=== PATIENT | female | born 1975 | race Caucasian/White ===

== ENCOUNTER → 2019-03-26 08:19 | Outpatient (BNVA) | payer OTHER, SELFPAY | PROVIDERS: Family Provider Family Medicine; PCP Family Medicine; Visit Provider Obstetrics & Gynecology Female Pelvic Medicine and Reconstructive Surgery | DX: Z12.4 Encounter for screening for malignant neoplasm of cervix (principal); Z12.39 Encounter for other screening for malignant neoplasm of breast; N92.0 Excessive and frequent menstruation with regular cycle; N94.6 Dysmenorrhea, unspecified; E66.01 Morbid (severe) obesity due to excess calories; Z80.0 Family history of malignant neoplasm of digestive organs | CPT/HCPCS: 88175 ==

== ENCOUNTER → 2019-03-28 14:02 | Outpatient (BNVA) | payer OTHER, SELFPAY | PROVIDERS: Family Provider Family Medicine; PCP Family Medicine; Referring Provider Obstetrics & Gynecology Female Pelvic Medicine and Reconstructive Surgery; Visit Provider Obstetrics & Gynecology Female Pelvic Medicine and Reconstructive Surgery | DX: N92.0 Excessive and frequent menstruation with regular cycle (principal); E66.01 Morbid (severe) obesity due to excess calories; N94.6 Dysmenorrhea, unspecified; N85.4 Malposition of uterus; N83.292 Other ovarian cyst, left side | CPT/HCPCS: 76830; 76856 ==

== ENCOUNTER → 2019-04-14 13:01 | Outpatient (BNVA) | payer OTHER, SELFPAY | PROVIDERS: Family Provider Family Medicine; PCP Family Medicine; Visit Provider Obstetrics & Gynecology Female Pelvic Medicine and Reconstructive Surgery | DX: N92.0 Excessive and frequent menstruation with regular cycle (principal) | CPT/HCPCS: 81025 ==

== ENCOUNTER → 2019-04-15 09:57 | Outpatient (BNVA) | payer OTHER, SELFPAY | PROVIDERS: Family Provider Family Medicine; PCP Family Medicine; Visit Provider Obstetrics & Gynecology Female Pelvic Medicine and Reconstructive Surgery | DX: N92.0 Excessive and frequent menstruation with regular cycle (principal) | CPT/HCPCS: 88305 ==

== ENCOUNTER 2019-07-09 10:01 | Day surgery (SDC) | payer OTHER, SELFPAY ==
[2019-07-08 12:00] VITALS: BMI 41.9
[2019-07-09] VITALS (7 sets, daily range): BP systolic 105–168; BP diastolic 69–111; PULSE 72–103; RESP 16–18; TEMP 36.4–36.6; O2SAT 96–98
[2019-07-09] MEDS: sodium chloride 0.9% 1,000 ML 30 ML IV (10:46)
[2019-07-09 10:53] LABS: Add Urine Microscopic? NO
--- NOTE | 2019-07-09 10:58 | ANES.PREANE2 ---
Pre-Anesthetic Assessment Pre-Anesthetic Assessment: Height/Weight: Height 1.68 m Weight 117.934 kg Temp Pulse Resp BP Pulse Ox 97.9 F 78 18 168/111 98 07/09/19 10:38 07/09/19 10:38 07/09/19 10:38 07/09/19 10:38 07/09/19 10:38 Preop Diagnosis: Abnormal uterine bleeding Proposed Procedure: Operation Date: 07/09/19 11:45 Proposed Procedures p Hysteroscopy with polypectomy Endometrial ablation with Novasure [id number]/N92.0/N94.6/N84.0(Not Applicable) - Pancho Jaramillo MD Last intake: Intake Last Liquid Date 07/08/19 Last Liquid Time 23:30 Last Solid Date 07/08/19 Last Solid Time 20:00 Social: Social History: Alcohol () and Tobacco (quit 2007) Exam: Pre-Anes Outpt Exam: alert, oriented x 3, clear to auscultation bilaterally and regular rate & rhythm Airway: Submandibular: WNL Cervical ROM: WNL MP: 2 Dentition: Other (teeth ok, caps) History/ROS: No significant history except as noted Pulmonary: Pulmonary: None reported CV/HEM: CV/HEM: HTN : : None reported Hepatic: Hepatic: None reported GI: GI: GERD (controlled) Metabolic: Metabolic: Morbid obesity Musc/skel: Musc/skel: None reported Neuropsych: Neuropsych: Anxiety and Depression Anesthetic Plan: ASA status: 3 Anesthesia: Anesthesia Evaluation and General Risk of > 500 ml blood loss (7ml/kg in children): No Meds/Allergies Current Medications: Current Medications Generic Name Dose Route Start Last Admin Trade Name Freq PRN Reason Stop Dose Admin Sodium Chloride 1,000 mls @ 30 ml s/hr 07/09/19 10:30 07/09/19 10:46 Sodium Chloride 0.9% IV 07/10/19 10:29 30 mls/hr .Q24H PHILIPPE Administration PFSH Anesthesia PFSH: Medical History Anxiety and depression Family history of colon cancer mother/grandfather GERD (gastroesophageal reflux disease) Hypertension Surgical History History of adenoidectomy History of delivery (~2006) Family History Mother Hypertension Colon cancer Diagnosed in her early 40s Lung cancer Grandfather Stroke maternal Colon cancer maternal; age of diagnosis unknown Father Thyroid condition Denies family history of Ovarian cancer Diabetes Heart disease Hyperlipidemia Breast cancer Uterine cancer Social History (Updated 07/08/19 @ 10:10 by Cathy Hsieh RN) Smoking and tobacco status: former smoker Quit status (tobacco): has quit using tobacco Year quit tobacco: 11/2006 Former quit date comment: Started smoking at 13 years old and smoked approximately 1 pack daily Alcohol intake: current Alcohol intake frequency: holidays/special occasions only Alcohol type: beer, wine and hard liquor Desire information about substance/drug rehabilitation?: No (History of marijuana use in her 20s) 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
[2019-07-09 11:02] LABS: Bilirubin Urine Neg (NEGATIVE); Blood Urine Neg (Negative); Glucose Urine UA Norm (Normal); Ketones Urine Negative (Negative); Leukocyte Esterase Urine Negative (Negative); Nitrate Urine Negative (Negative); Protein Urine Neg (Negative); Specific Gravity, Urine 1.015 (1.005-1.030); Urine Appearance Clear (CLEAR); Urine Color Yellow (Yellow); Urobilinogen Urine Norm (Negative); pH Urine 5 (5-7)
[2019-07-09 11:07] LABS: Basophils # 0.1 10^3/uL (0.0-0.1); Basophils % 1.2 %; Eosinophils # 0.2 10^3/uL (0.0-0.8); Eosinophils % 2.5 %; Hemoglobin 14.1 g/dL (11.5-15.3); Lymphocytes # 2.7 10^3/uL (0.8-4.8); Lymphocytes % 40.9 %; Mean Corpuscular Hemoglobin 29.1 pg (28.0-34.0); Mean Corpuscular Volume 90.9 fL (81-99); Mean Platelet Volume 9.6 fL (7.4-10.4); Monocytes # 0.6 10^3/uL (0.2-0.9); Monocytes % 8.8 %; Neutrophils % 46.4 %; Nucleated Red Blood Cells % 0 %; Platelet Count 293 10^3/cmm (130-400); Red Blood Count 4.84 10^6/uL (4.1-5.3); Red Cell Distribution Width 14.3 % (12.1-15.1); White Blood Count 6.5 10^3/uL (4.0-10.0)
[2019-07-09 11:24] LABS: Anion Gap 16.7 (5-19); Blood Urea Nitrogen 14 mg/dL (6-20); Carbon Dioxide 25 mmol/L (22-29); Chloride 99 mmol/L (98-107); Glomerular Filtration Rate 77.9 mL/min (90-130); Glucose 123 mg/dL (65-115); Osmolality Calculated 280 mOsm/kg (285-295); Potassium 4.7 mmol/L (3.5-5.1); Sodium 136 mmol/L (136-145)
--- NOTE | 2019-07-09 11:25 | W.PM.OPSUD ---
Surgery/Procedure H&P Update DATE OF PROCEDURE: July 09, 2019 DATE H&P PERFORMED: 07/08/19 H&P UPDATE INFORMATION: I have reviewed H&P completed within last 30 days, I have examined patient prior to procedure and No changes to prior documentation PREOP DIAGNOSIS: Abnormal uterine bleeding PLANNED PROCEDURE: Operation Date: 07/09/19 11:45 Proposed Procedures p Hysteroscopy with polypectomy Endometrial ablation with Novasure [id number]/N92.0/N94.6/N84.0(Not Applicable) - Pancho Jaramillo MD
[2019-07-09 12:00] LABS: OR HCG Qualitative Urine Negative (Negative)
--- NOTE | 2019-07-09 13:31 | P.OP_ITS ---
Operative Report Date of procedure: July 09, 2019 Pre-op Diagnosis: Abnormal uterine bleeding Procedure Done: Hysteroscopy with D&C and Endometrial ablation Via NovaSure Pathology: Endocervical curettings. Endometrial curettings. Estimated blood loss (mL): 5 IV fluids (mL): 700 Condition: stable Disposition: PACU Brief History: 43-year-old female with abnormal uterine bleeding unresponsive to medical management. Procedure: After informed consent, this is a 43-year-old patient who has completed childbearing; and she has a tubal ligation. The patient desired control for abnormal uterine bleeding. She declined other more conservative options such as oral contraceptive pills and Mirena intrauterine device. The patient desired an ablation. Risks of the surgery, which include risk of infection, bleeding, urine perforation; were discussed in detail with the patient. Patient was also informed that is not advised after having an ablation procedure done. Patient verbalized understanding of the risks, and informed consent was obtained. The patient was taken to the operating room where general anesthesia was administered. The patient was examined under anesthesia and found to have a normal uterus with normal adnexa. She was placed in the dorsal lithotomy position and prepped and draped in sterile fashion. A open side speculum was placed in the vagina, and the anterior lip of cervix was grasped with the single toothed tenaculum. The uterus was then gently sounded to 9 cm. The length of the cervical canal was 3 cm and the canal was dilated to 8 mm with Valencia?s dialators. and the 2.7 cm hysteroscope advanced gently to the uterine fundus while visualizing the monitor. Survey of the uterine cavity showed: fundus normal proliferative endometrium; left and right ostiums visualized, anterior wall with proliferative endometrium; and posterior wall with proliferative endometrium; the endocervical canal is normal. A small endometrial polyp on anterior wall noted in cavity. The hysteroscope was removed. A curette was advanced gently to the uterine fundus and rotated to clear the uterus. A sharp curettage wan then performed until a gritty texture was noted. There was minimal bleeding noted. The sterile NovaSure? Disposable Device package was opened, connected and tested per instructions. It was found to be working properly. The device?s array is completely enclosed by the external sheath and the WIDTH dial reads approximately 0.5 cm. The appropriate cavity length settings was set 6 cm. Adjust and lock the cavity length setting feature on the Disposable Device to the value obtained. The Cervical Collar was fully retracted to its proximal position. Confirmed that the cervix was dilated to 8.0 mm. While maintaining a slight traction on the tenaculum to minimize the angle of the uterus. In-line with the axis of the uterus the Disposable Device was inserted transcervically into the uterine cavity and advance the device until the distal end of the sheath touched the fundus. The handles were slowly squeezed up to the point of increased resistance without locking it. The WIDTH dial read 2.5 cm. The Disposable Device handles were slowly squeezed together while gently moving the Disposable Device -0.5 cm to and from the fundus and rotating the handle of the Disposable Device 45? counterclockwise from the vertical plane and 45? clockwise from the vertical plane until the handles locked and confirmed the with dial read greater than 2.5 cm. The Disposable Device was gently moved using anterior, posterior and lateral movements. The Disposable Device was slightly pulled back until the WIDTH dial reading reduced by approximately 0.2-0.5 cm. While holding the tenaculum, the Disposable Device was advance to the fundus, maintaining slight forward pressure. The WIDTH dial read to the previous measurement. The Cervical Collar was slide forward until it forms a seal against the external cervical os. The value indicated on the width dial into the WP Fail-Safe? RF Controller. In Automatic Mode the Cavity Integrity Assessment (ROSENDA) procedure by stepping on the foot switch once was began. The cavity integrity assessment LED signaled the test has passed. The ablation cycle started was after the successful completion of the Cavity Integrity Assessment test. Termination of the ablation was automatic at 59 seconds at a power of 83w. The Cervical Collar was slide it to its proximal position. The Disposable Device was unlock, holding the front painter and body mechanic apprentice stationary and pulling the rear handles backwards until the Closed Array indicator reads closed the Disposable Device was withdrawn from the uterine cavity. A hysteroscopy was performed post ablation to confirm therapy it was noted that endometrial cavity had been thoroughly ablated. Prior to this, a sharp curettage was performed, and endometrial curettings were also collected. Patient did have an endometrial biopsy in the office as well, which was negative. The hysteroscope and the tenaculum were removed with goad hemostasis noted. The patient tolerated the procedure well. The patient was taken to the recovery area in stable condition.
== END 2019-07-09 14:37 | disposition home or self-care (01) ==
PROVIDERS: PCP Family Medicine; Visit Provider Obstetrics & Gynecology
PROC: 0U598ZZ Destruction of Uterus, Via Natural or Artificial Opening Endoscopic (ICD-10-PCS; CPT 58563; principal; 2019-07-09 11:45)
PROC: (CPT 58120; 2019-07-09 11:45)
DX: N93.9 Abnormal uterine and vaginal bleeding, unspecified (principal); I10 Essential (primary) hypertension; K21.9 Gastro-esophageal reflux disease without esophagitis; E66.01 Morbid (severe) obesity due to excess calories; Z68.41 Body mass index [BMI] 40.0-44.9, adult; F41.9 Anxiety disorder, unspecified; F32.9 Major depressive disorder, single episode, unspecified; Z80.0 Family history of malignant neoplasm of digestive organs; Z82.49 Family history of ischemic heart disease and other diseases of the circulatory system; Z83.3 Family history of diabetes mellitus; Z87.891 Personal history of nicotine dependence
CPT/HCPCS: 58563; 12345; 36415; 80048; 81003; 81025; 84703; 85025; 86850; 86900; 88305; J0690; J1100; J2001; J2405; J2704; J2710; J3010; J3490; J7030

== ENCOUNTER → 2019-12-29 16:20 | Outpatient (BNVA) | payer OTHER, SELFPAY | PROVIDERS: PCP Family Medicine; Visit Provider Dermatology | DX: D48.9 Neoplasm of uncertain behavior, unspecified (principal) | CPT/HCPCS: 88304 ==

== ENCOUNTER 2022-09-27 08:45 | Day surgery (SDC) | payer BC, SELFPAY ==
[2022-09-25 14:59] VITALS: BMI 35.6
[2022-09-27] VITALS (10 sets, daily range): BP systolic 126–169; BP diastolic 83–108; PULSE 88–111; RESP 16–18; TEMP 36.3–36.6; O2SAT 94–100
[2022-09-27 09:25] LABS: OR HCG Qualitative Urine Negative (Negative)
[2022-09-27] MEDS: sodium chloride 0.9% 1,000 ML 30 ML IV (09:35)
--- NOTE | 2022-09-27 10:09 | ANES.PREANE2 ---
Pre-Anesthetic Assessment Height/Weight: Height 1.7 m Weight 103.419 kg Temp Pulse Resp BP Pulse Ox O2 Del Method 97.7 F 100 18 169/107 98 Room Air 09/27/22 09:15 09/27/22 09:15 09/27/22 09:15 09/27/22 09:15 09/27/22 09:15 09/27/22 09:15 Preop Diagnosis: screening Operation Date: 09/27/22 10:00 Proposed Procedures p Colonoscopy [id number],Z12.11(Not Applicable) - Brody Garcia DO Familial anesthetic complications: none Was Beta Jose taken within 24 hours: Yes Was Clonidine taken within 24 hours: N/A Last intake: Intake Last Liquid Date 09/26/22 Last Liquid Time 00:00 Last Solid Date 09/25/22 Last Solid Time 19:30 Last Intake: 00:00 Social Alcohol (social) and No tobacco Exam alert, oriented x 3, clear to auscultation bilaterally and regular rate & rhythm Airway Submandibular: within normal limits Cervical ROM: within normal limits Mallampati: Class II Dentition: full Pulmonary None reported CV/HEM Arrythmia (tachy) and Hypertension None reported Hepatic None reported GI Gastroesophageal Reflux Disease (controlled) Metabolic Diabetes Mellitus and Morbid Obesity Musc/skel Lower Back Pain Neuropsych Syncope (sight of blood) Anesthetic Plan ASA status: 3 Anesthesia: General Risk of > 500 ml blood loss (7ml/kg in children): No Medications/Allergies Home Medications Medication Instructions Recorded Confirmed Last Taken Type cetirizine 10 mg capsule (Zyrtec) 10 mg PO DAILY 03/26/19 09/27/22 09/26/22 History pantoprazole 40 mg tablet,delayed 40 mg PO DAILY 03/26/19 09/27/22 09/26/22 History release (Protonix) norethindrone (contraceptive) 0.35 0.35 mg PO DAILY #28 tabs 04/21/19 09/27/22 09/26/22 Rx mg tablet lactobacillus combination no.9 4 4 cell PO DAILY 06/29/22 09/27/22 09/26/22 History billion cell capsule (Adult 50 Plus Probiotic) ibnbinvijnyo-Pk-dhil-minerals 1 tab PO DAILY 06/29/22 09/27/22 09/26/22 History tirzepatide 2.5 mg/0.5 mL 5 mg SUBCUT .1 x week 06/29/22 09/27/22 09/26/22 History subcutaneous pen injector (Shashank) alprazolam 0.25 mg tablet 0.25 mg PO DAILY PRN anxiety 09/25/22 09/27/22 09/26/22 History metoprolol succinate 50 mg 50 mg PO DAILY 09/25/22 09/27/22 09/26/22 History tablet,extended release 24 hr duloxetine 30 mg capsule,delayed 30 mg PO DAILY 09/27/22 09/27/22 09/26/22 History release Allergies Allergy/AdvReac Type Severity Reaction Status Date / Time No Known Allergies Allergy Verified 06/29/22 14:27 Current Medications Generic Name Dose Route Start Last Admin Trade Name Freq PRN Reason Stop Dose Admin Sodium Chloride 1,000 mls @ 30 mls/hr 09/27/22 09:15 09/27/22 09:35 Sodium Chloride 0.9% IV 09/28/22 09:14 30 mls/hr .Q24H PHILIPPE Administration PFSH Anesthesia Medical History Aftercare following surgery of the genitourinary system Anxiety and depression Family history of colon cancer mother/grandfather GERD (gastroesophageal reflux disease) Hypertension Surgical History H/O prior ablation treatment 07/09/2019- hysteroscopy with dilation and curettage and endometrial ablation via Novasure on 07/09/2019 History of adenoidectomy History of delivery (~2006) Family History Mother Hypertension Colon cancer Diagnosed in her early 40s Lung cancer Grandfather Stroke maternal Colon cancer maternal; age of diagnosis unknown Father Thyroid condition Denies family history of Ovarian cancer Diabetes Heart disease Hyperlipidemia Breast cancer Uterine cancer Social History Smoking and tobacco status: former smoker Quit status (tobacco): has quit using tobacco Year quit tobacco: 11/2006 Former quit date comment: Started smoking at 13 years old and smoked approximately 1 pack daily Alcohol intake: current Alcohol intake frequency: holidays/special occasions only Alcohol type: beer, wine and hard liquor Substance/Drug Use: former Date of last use: in her 20's Desire information about substance/drug rehabilitation?: No (History of marijuana use in her 20s) Current occupation: Works multimedia assistant as a school counselor Data Anesthesia Cardiac Studies: No Data to Display
--- NOTE | 2022-09-27 10:35 | P.HP_ITS ---
Providers/Chief Complaint Primary Care Provider: Leonie Marrufo MD Chief Complaint: Z12.11 History of Present Illness Veronica Pompa is a 47 year old female Medications/Allergies Home Medications Medication Instructions Recorded Confirmed Last Taken Type cetirizine 10 mg capsule (Zyrtec) 10 mg PO DAILY 03/26/19 09/27/22 09/26/22 History pantoprazole 40 mg tablet,delayed 40 mg PO DAILY 03/26/19 09/27/22 09/26/22 History release (Protonix) norethindrone (contraceptive) 0.35 0.35 mg PO DAILY #28 tabs 04/21/19 09/27/22 09/26/22 Rx mg tablet lactobacillus combination no.9 4 4 cell PO DAILY 06/29/22 09/27/22 09/26/22 History billion cell capsule (Adult 50 Plus Probiotic) lacqemwefrlc-Ve-xjwg-minerals 1 tab PO DAILY 06/29/22 09/27/22 09/26/22 History tirzepatide 2.5 mg/0.5 mL 5 mg SUBCUT .1 x week 06/29/22 09/27/22 09/26/22 History subcutaneous pen injector (Mounjaro) alprazolam 0.25 mg tablet 0.25 mg PO DAILY PRN anxiety 09/25/22 09/27/22 09/26/22 History metoprolol succinate 50 mg 50 mg PO DAILY 09/25/22 09/27/22 09/26/22 History tablet,extended release 24 hr duloxetine 30 mg capsule,delayed 30 mg PO DAILY 09/27/22 09/27/22 09/26/22 History release Allergies Allergy/AdvReac Type Severity Reaction Status Date / Time No Known Allergies Allergy Verified 06/29/22 14:27 PFSH Acute PFSH: Medical History Aftercare following surgery of the genitourinary system Anxiety and depression Family history of colon cancer mother/grandfather GERD (gastroesophageal reflux disease) Hypertension Surgical History H/O prior ablation treatment 07/09/2019- hysteroscopy with dilation and curettage and endometrial ablation via Novasure on 07/09/2019 History of adenoidectomy History of delivery (~2006) Family History Mother Hypertension Colon cancer Diagnosed in her early 40s Lung cancer Grandfather Stroke maternal Colon cancer maternal; age of diagnosis unknown Father Thyroid condition Denies family history of Ovarian cancer Diabetes Heart disease Hyperlipidemia Breast cancer Uterine cancer Social History Smoking and tobacco status: former smoker Quit status (tobacco): has quit using tobacco Year quit tobacco: 11/2006 Former quit date comment: Started smoking at 13 years old and smoked approximately 1 pack daily Alcohol intake: current Alcohol intake frequency: holidays/special occasions only Alcohol type: beer, wine and hard liquor Substance/Drug Use: former Date of last use: in her 20's Desire information about substance/drug rehabilitation?: No (History of marijuana use in her 20s) 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
--- NOTE | 2022-09-27 14:26 | ANE.PACU2 ---
Inpatient post-anesthesia follow up: Airway intact: Yes Vital signs: Temperature 97.4 F Pulse Rate 91 Respiratory Rate 18 Blood Pressure 150/108 Pulse Oximetry 98 Oxygen Delivery Me thod Room Air Oxygen Flow Rate Fraction of Inspir ed Oxygen Hydration adequate: Yes Nausea and vomiting: No Pain level: 2 Mental status: Baseline
== END 2022-09-27 11:56 | disposition home or self-care (01) ==
PROVIDERS: Anesthesiology; PCP Family Medicine; Visit Provider Surgery
PROC: 0DJD8ZZ Inspection of Lower Intestinal Tract, Via Natural or Artificial Opening Endoscopic (ICD-10-PCS; CPT 45378; principal; 2022-09-27 10:00)
DX: Z12.11 Encounter for screening for malignant neoplasm of colon (principal); K21.9 Gastro-esophageal reflux disease without esophagitis; E11.9 Type 2 diabetes mellitus without complications; E66.01 Morbid (severe) obesity due to excess calories; Z68.35 Body mass index [BMI] 35.0-35.9, adult; F41.9 Anxiety disorder, unspecified; F32.A Depression, unspecified; I10 Essential (primary) hypertension; Z80.0 Family history of malignant neoplasm of digestive organs; Z87.891 Personal history of nicotine dependence
CPT/HCPCS: 45378; 81025; 84703; J0330; J2405; J2704; J3490; J7030